=== PATIENT | female | born 1935 | race Caucasian/White ===

== ENCOUNTER 2016-07-12 21:22 | Emergency (ER) | payer OTHER ==
[~2016-07-12] VITALS: Ht 167.6 cm; Wt 51.7 kg
[2016-07-12 21:22] VITALS: BP_SYST 206
[~2016-07-12 21:22] MED LIST: DONE5TAB3 PO; FOLI-43 PO; LORA-258 PO; SIMV20TA6 PO; VALS160T2 PO
--- NOTE | 2016-07-12 21:53 | NUR ---
Patient to ER bed 6 to gown for evaluation. Side rails up. Report given to TOO [place].
--- NOTE | 2016-07-12 22:00 | NUR ---
Patient alert and oriented x 2-3, came in the ER with daughter with a complaint of severe low mid back pain which started earlier today with vomiting and diarrhea. Per daughter, pt also was diaphoretic and did not eat well. No medications taken for pain. Per patient, she does not have pain at this time. No acute distress or SOB noted at this time.
[2016-07-12 22:25] LABS: BILIRUBIN,URINE NEGATIVE (NEGATIVE); BLOOD, URINE 2+ (NEGATIVE); CLARITY/URINE CLEAR (CLEAR); COLOR,URINE YELLOW (YELLOW); GLUCOSE,URINE NEGATIVE (NEGATIVE); KETONES,URINE 2+ (NEGATIVE); LEUKOCYTE ESTERASE ,URINE NEGATIVE (NEGATIVE); NITRITE, URINE POSITIVE (NEGATIVE); PROTEIN URINE TRACE (NEGATIVE); UROBILINOGEN,URINE 0.2 (0.2-1.0)
[2016-07-12] MEDS ORDERED: ONDANSETRON 4 MG ODT TAB PO ONE (22:30)
[2016-07-12 22:36] LABS: BACTERIA,URINE MANY /HPF (None Seen); WBC,URINE 0-3 /HPF (0-3)
[2016-07-12 22:37] LABS: MUCUS,URINE None Seen /LPF (None Seen)
--- NOTE | 2016-07-12 23:00 | NUR ---
ER Dr. Leggett at bedside examining patient.
[2016-07-12 23:37] LABS: BASOPHILS # (AUTO) 0.1 K/uL (0.0-0.2); BASOPHILS % (AUTO) 0.6 % (0.0-2.0); EOSINOPHILS % (AUTO) 0.1 % (0.0-4.0); HEMATOCRIT 46.2 % (36-48); LYMPHOCYTES # (AUTO) 1.1 K/uL (1.0-5.5); MEAN CORPUSCULAR HEMOGLOBIN 32 pg (27-31); MEAN CORPUSCULAR HGB CONC 33 % (32-36); MEAN CORPUSCULAR VOLUME 98 fL (79.0-98.0); NEUTROPHILS # (AUTO) 9.9 K/uL (1.8-7.7); NEUTROPHILS % (AUTO) 82.3 % (40.0-70.0); PLATELET COUNT (AUTO) 251 K/uL (130-430); RED BLOOD CELL COUNT(AUTO) 4.71 MIL/uL (4.2-6.2); RED CELL DISTRIBUTION WIDTH 13.5 % (9.0-15.0); WHITE BLOOD COUNT (AUTO) 12.1 K/uL (4.8-10.8)
[2016-07-12 23:42] LABS: ANION GAP 6 (5-15); CALCIUM 9.1 mg/dL (8.4-11.0); CHLORIDE 105 mmol/L (98-107); CREATININE 0.82 mg/dL (0.55-1.30); GLUCOSE 128 mg/dL (70-99); SODIUM SERUM 140 mmol/L (136-145); UREA NITROGEN, BLOOD 19 mg/dL (8-21)
[2016-07-12] MEDS ORDERED: IOHEXOL 350 mgI/mL, 150 ML INFUS..BTL IV ONE (23:56)
[2016-07-13 01:47] VITALS: BP_SYST 145
--- NOTE | 2016-07-13 01:47 | NUR ---
Patient given written and verbal discharge instructions and verbalizes understanding. ER MD discussed with patient the results and treatment provided. Given copies of lab results performed in ER. Patient in stable condition. No acute distress or SOB noted. ID arm band removed. IV catheter removed intact and dressing applied, no active bleeding. Rx of cipro given. Patient educated on pain management and to follow up with PMD. Pain Scale 0/10. Opportunity for questions provided and answered.
== END 2016-07-13 01:47 | disposition home or self-care (01) ==
LOC: SED 21:22
DX: N39.0 Urinary tract infection, site not specified (principal); I71.4 Abdominal aortic aneurysm, without rupture; F03.90 Unspecified dementia, unspecified severity, without behavioral disturbance, psychotic disturbance, mood disturbance, and anxiety; I10 Essential (primary) hypertension; F17.200 Nicotine dependence, unspecified, uncomplicated
CPT/HCPCS: 36415; 74175; 80048; 81000; 85025; 87086; 99285; Q0162; Q9967